=== PATIENT | female | born 2000 | race Caucasian/White ===

== ENCOUNTER 2020-05-23 10:04 | Outpatient (REF) | payer OTHER, SELFPAY ==
--- NOTE | 2020-05-23 10:15 | XR_ITS ---
EXAMINATION: XR CHEST CLINICAL INFORMATION: Short chest pain COMPARISON: Chest radiographs 08/05/2019 TECHNIQUE: 2 views of the chest were obtained. FINDINGS: The lungs are clear. There is no pneumothorax, pleural reaction, airspace consolidation, or effusion. The heart is normal in size. The hilar and mediastinal contours are normal. No free air beneath the diaphragms. No visible acute bony abnormality. IMPRESSION: Unremarkable examination.
[2020-05-23 11:47] LABS: D Dimer < 200 NG/ML
== END 2020-05-23 10:05 | disposition home or self-care (01) ==
LOC: HO.HMGCLDS 10:04
PROVIDERS: PCP Internal Medicine; Visit Provider Internal Medicine
DX: R07.9 Chest pain, unspecified (principal); R10.9 Unspecified abdominal pain
CPT/HCPCS: 36415; 71046; 85379